=== PATIENT | male | born 1950 | race African-American/Black ===

== ENCOUNTER 2020-08-06 06:41 | Inpatient (IN) | payer MEDICAID ==
[~2020-08-06] VITALS: Ht 175.3 cm; Wt 56.7 kg
[2020-08-06] VITALS (15 sets, daily range): BP systolic 83–128; BP diastolic 44–88
[2020-08-06] MEDS ORDERED: SODIUM CHLORIDE 0.9% 1000ML BAG (SEPSIS BOLUS) IV ONE (07:15)
[2020-08-06 07:35] LABS: BASOPHILS % 0.6 % (0.0-2.0); EOSINOPHILS % 0.4 % (0.0-5.0); HEMATOCRIT. 40.2 % (42.0-52.0); HEMOGLOBIN. 11.9 g/dL (14.0-18.0); LYMPHOCYTES % 11.4 % (20.0-50.0); MEAN CORPUSCULAR HEMOGLOBIN 27.3 pg (28.0-32.0); MEAN CORPUSCULAR VOLUME 91.9 fL (80.0-94.0); MEAN PLATELET VOLUME 8.8 fl (7.4-10.4); MONOCYTES % 5.1 % (2.0-8.0); NEUTROPHILS % 82.5 % (40.0-76.0); PLATELET 296 x1000/uL (130-400); RED BLOOD CELL COUNT 4.37 mill/uL (4.7-6.1); RED CELL DISTRIBUTION WIDTH 16.8 % (11.6-14.6)
[2020-08-06 07:43] LABS: CHLORIDE 85 mEq/L (98-107)
[2020-08-06 07:45] LABS: PROTHROMBIN TIME 10.9 sec (9.6-11.0)
[2020-08-06 07:49] LABS: ETHANOL BLOOD < 10 mg/dL
[2020-08-06] MEDS ORDERED: INSULIN REGULAR (HUMULIN R) 300UNITS/3ML VIAL IV NR (08:45)
[2020-08-06 08:55] LABS: BG BASE EXCESS -10.8 mmol/L (-2.0-2.0); BG CARBOXYHEMOGLOBIN 0.1 % (0.5-1.5); BG DEOXYHEMOGLOBIN 3.6 % (0.0-5.0); BG FRACTION INSPIRED OXYGEN 21; BG HCO3 ACT 14.5 mmol/L (22.0-26.0); BG METHEMOGLOBIN 0.3 % (0.0-1.5); BG OXYGEN SATURATION 96.4 % (92.0-98.5); BG PCO2 30.7 mmHg (35.0-45.0); BG PH 7.293 (7.350-7.450); BG PO2 95.8 mmHg (75.0-100.0); BG SAMPLE SITE RIGHT BRACHIAL; BG TOTAL HEMOGLOBIN 11.2 g/dL (12.0-18.0); BG VENT MODE ROOM AIR
[2020-08-06 08:56] LABS: CLARITY URINE CLEAR (CLEAR); COLOR URINE YELLOW (YELLOW); KETONES URINE 2+ (NEGATIVE); LEUKOCYTE ESTERASE URINE NEGATIVE (NEGATIVE); NITRITE URINE NEGATIVE (NEGATIVE); OCCULT BLOOD URINE NEGATIVE (NEGATIVE); PROTEIN URINE TRACE (NEGATIVE); SPECIFIC GRAVITY URINE 1.026 (1.005-1.030); UROBILINOGEN URINE 0.2 E.U./dL (0.2-1.0)
[2020-08-06] MEDS ORDERED: INSULIN REGULAR (DRIP) 100 UNITS in SODIUM CHLORIDE 0.9% 99 ML IV NR (09:00)
[2020-08-06] MEDS ORDERED: CALCIUM GLUCONATE 100MG/ML 10ML VIAL IV NR (09:00)
[2020-08-06 09:16] LABS: *AMPHETAMINES SCREEN URINE NEGATIVE (NEGATIVE); *BARBITURATES SCREEN URINE NEGATIVE (NEGATIVE); *BENZODIAZEPINES SCREEN URINE NEGATIVE (NEGATIVE); *COCAINE SCREEN URINE NEGATIVE (NEGATIVE); CANNABINOID URINE SCREEN NEGATIVE (NEGATIVE); METHADONE URINE SCREEN NEGATIVE (NEGATIVE); OPIATES URINE SCREEN NEGATIVE (NEGATIVE)
[2020-08-06 09:17] LABS: PHENCYCLIDINE URINE SCREEN NEGATIVE (NEGATIVE)
[2020-08-06] MEDS: INSULIN REGULAR (DRIP) 100 UNITS in SODIUM CHLORIDE 0.9% 99 ML IV NR ×2 (09:57→16:19)
[2020-08-06] MEDS ORDERED: DOCUSATE SODIUM 100MG CAPSULE PO PRN (11:00)
[2020-08-06] MEDS ORDERED: NITROGLYCERIN 0.4MG TABLET SL SL PRN (11:00)
[2020-08-06] MEDS ORDERED: KETOROLAC 15MG/ML VIAL IV PRN (11:00)
[2020-08-06] MEDS ORDERED: MAGNESIUM/ALUMINUM HYDROXIDE/SIMETHICONE 30ML UDC PO PRN (11:00)
[2020-08-06] MEDS ORDERED: DEXTROSE 50% WATER 50ML SYRINGE IV PRN ×2 (11:00)
[2020-08-06] MEDS ORDERED: ACETAMINOPHEN 325MG TABLET PO PRN ×2 (11:00)
[2020-08-06] MEDS ORDERED: NA PHOS,M-B/NA PHOS,DI-BA ENEMA 118ML PR PRN (11:00)
[2020-08-06] MEDS ORDERED: ONDANSETRON HCL 4MG/2ML INJ IV PRN (11:00)
[2020-08-06] MEDS ORDERED: CLONIDINE 0.1MG TABLET PO PRN (11:00)
[2020-08-06] MEDS ORDERED: IPRATROPIUM/ALBUTEROL 0.5-3(2.5)MG/3ML NEB NEB PRN (11:00)
[2020-08-06] MEDS ORDERED: GUAIFENESIN 200MG/10ML SUGAR FREE UDC PO PRN (11:00)
[2020-08-06] MEDS: BLOOD SUGAR DIAGNOSTIC STRIP TEST SCH ×11 (11:21→23:10)
[2020-08-06] MEDS: SODIUM CHLORIDE 0.9% 1,000 ML IV SCH ×2 (11:26→16:22)
[2020-08-06 11:31] LABS: T4 FREE 1.27 ng/dL (0.76-1.46)
[2020-08-06] MEDS: ENOXAPARIN 40MG/0.4ML SYR SUBCUT SCH (11:41)
[2020-08-06 11:45] LABS: FOLIC ACID (FOLATE) SERUM >20 ng/mL ng/mL (>5.38)
[2020-08-06 11:55] LABS: VITAMIN B12 SERUM 202 pg/mL (211-911)
[2020-08-06] MEDS ORDERED: INSULIN REGULAR (DRIP) 100 UNITS in SODIUM CHLORIDE 0.9% 100 ML IV SCH (13:00)
[2020-08-06 16:10] LABS: CHLORIDE 100 mEq/L (98-107)
[2020-08-06 16:16] LABS: PHOSPHORUS 3.1 mg/dL (2.5-4.9)
[2020-08-06 16:19] LABS: CREATINE KINASE 94 IU/L (39-308)
[2020-08-06 16:21] LABS: CREATINE KINASE MB FRACTION 2.1 ng/mL (0.5-3.6)
[2020-08-06] MEDS ORDERED: PNEUMOCOCCAL 23-VAL P-SAC VAC 0.5 ML IM ONE (20:00)
[2020-08-06] MEDS: DEXT 5%/0.9% NACL KCL 20MEQ/L 1,000 ML IV SCH (20:16)
[2020-08-06 20:46] LABS: CHLORIDE 106 mEq/L (98-107)
[2020-08-06 20:52] LABS: PHOSPHORUS 2.5 mg/dL (2.5-4.9)
[2020-08-06] MEDS ORDERED: ZOLPIDEM TARTRATE 5MG TABLET PO PRN (21:00)
[2020-08-06] MEDS: CYANOCOBALAMIN 1000MCG/ML VIAL IM SCH (22:06)
[2020-08-07] VITALS (39 sets, daily range): BP systolic 94–165; BP diastolic 51–101
[2020-08-07] MEDS: BLOOD SUGAR DIAGNOSTIC STRIP TEST SCH ×9 (00:22→20:28)
[2020-08-07] MEDS: DEXT 5%/0.9% NACL KCL 20MEQ/L 1,000 ML IV SCH ×2 (02:37→09:29)
[2020-08-07 05:58] LABS: BASOPHILS % 0.5 % (0.0-2.0); EOSINOPHILS % 1.7 % (0.0-5.0); HEMATOCRIT. 31.9 % (42.0-52.0); HEMOGLOBIN. 10.2 g/dL (14.0-18.0); LYMPHOCYTES % 18.5 % (20.0-50.0); MEAN CORPUSCULAR HEMOGLOBIN 26.8 pg (28.0-32.0); MEAN CORPUSCULAR VOLUME 83.9 fL (80.0-94.0); MEAN PLATELET VOLUME 8.5 fl (7.4-10.4); MONOCYTES % 8.3 % (2.0-8.0); PLATELET 318 x1000/uL (130-400); RED CELL DISTRIBUTION WIDTH 15.7 % (11.6-14.6)
[2020-08-07] MEDS ORDERED: BLOOD SUGAR DIAGNOSTIC STRIP TEST SCH (06:00)
[2020-08-07 06:03] LABS: CHLORIDE 111 mEq/L (98-107)
[2020-08-07 06:10] LABS: PHOSPHORUS 2.5 mg/dL (2.5-4.9)
[2020-08-07 06:11] LABS: LDL CHOLESTEROL 107 mg/dL (5-100)
[2020-08-07 06:13] LABS: HDL CHOLESTEROL 53 mg/dL (40-59)
[2020-08-07 06:25] LABS: CREATINE KINASE 83 IU/L (39-308)
[2020-08-07 06:26] LABS: CREATINE KINASE MB FRACTION 1.6 ng/mL (0.5-3.6)
[2020-08-07] MEDS ORDERED: DEXTROSE 50% WATER 50ML SYRINGE IV PRN (06:45)
[2020-08-07] MEDS: CYANOCOBALAMIN 1000MCG/ML VIAL IM SCH (08:18)
[2020-08-07] MEDS: PANTOPRAZOLE SODIUM 40 MG/VIAL IV SCH (08:18)
[2020-08-07] MEDS: INSULIN LISPRO 100 UNITS/ML SUBCUT SCH ×7 (08:20→20:28)
[2020-08-07] MEDS: INSULIN GLARGINE UD 100 UNITS/ML SYR SUBCUT SCH (09:29)
[2020-08-07] MEDS: ENOXAPARIN 40MG/0.4ML SYR SUBCUT SCH (12:06)
[2020-08-08 05:00] VITALS: BP 139/66
[2020-08-08] MEDS: BLOOD SUGAR DIAGNOSTIC STRIP TEST SCH ×2 (07:09→12:58)
[2020-08-08 07:11] LABS: CHLORIDE 108 mEq/L (98-107)
[2020-08-08 08:00] VITALS: BP 131/80
[2020-08-08 08:30] LABS: BASOPHILS % 0.5 % (0.0-2.0); EOSINOPHILS % 1.9 % (0.0-5.0); HEMATOCRIT. 28.7 % (42.0-52.0); HEMOGLOBIN. 9.5 g/dL (14.0-18.0); LYMPHOCYTES % 24.3 % (20.0-50.0); MEAN CORPUSCULAR VOLUME 84.3 fL (80.0-94.0); MEAN PLATELET VOLUME 8.9 fl (7.4-10.4); MONOCYTES % 5.6 % (2.0-8.0); NEUTROPHILS % 67.7 % (40.0-76.0); PLATELET 230 x1000/uL (130-400); RED BLOOD CELL COUNT 3.41 mill/uL (4.7-6.1); RED CELL DISTRIBUTION WIDTH 15.7 % (11.6-14.6)
[2020-08-08] MEDS: PANTOPRAZOLE SODIUM 40 MG/VIAL IV SCH (09:46)
[2020-08-08] MEDS: CYANOCOBALAMIN 1000MCG/ML VIAL IM SCH (09:47)
[2020-08-08] MEDS: INSULIN LISPRO 100 UNITS/ML SUBCUT SCH ×4 (09:48→13:29)
[2020-08-08] MEDS: INSULIN GLARGINE UD 100 UNITS/ML SYR SUBCUT SCH (10:33)
[2020-08-08] MEDS: ENOXAPARIN 40MG/0.4ML SYR SUBCUT SCH (11:20)
[2020-08-08 12:00] VITALS: BP 131/80
[2020-08-08 14:46] VITALS: BP 131/80
== END 2020-08-08 16:07 | disposition home or self-care (01) | DRG 420 ==
LOC: ER 06:41 → CANRESERV 08:37 → ENRESERV 08:37 → CVICU 10:10 → EDBEDREQSVC 10:13 → EDBEDREQ 10:13 → ENRESERV 13:07 → 6EST 08-07 22:50
PROVIDERS: ADMIT Internal Medicine; ATTEND Internal Medicine
DX: E11.10 Type 2 diabetes mellitus with ketoacidosis without coma (principal); N17.0 Acute kidney failure with tubular necrosis; D51.9 Vitamin B12 deficiency anemia, unspecified; E87.1 Hypo-osmolality and hyponatremia; D63.8 Anemia in other chronic diseases classified elsewhere; E87.5 Hyperkalemia; F17.210 Nicotine dependence, cigarettes, uncomplicated; I10 Essential (primary) hypertension; T38.3X6A Underdosing of insulin and oral hypoglycemic [antidiabetic] drugs, initial encounter; Y92.89 Other specified places as the place of occurrence of the external cause; Z59.0 Homelessness; Z83.3 Family history of diabetes mellitus; Z79.4 Long term (current) use of insulin; Z91.14 Patient's other noncompliance with medication regimen
CPT/HCPCS: 36415; 36600; 71045; 80048; 80053; 80061; 80305; 80320; 81003; 82375; 82550; 82553; 82607; 82746; 82805; 82962; 83036; 83540; 83550; 83605; 83735; 83880; 84100; 84145; 84439; 84443; 84484; 85025; 90732; 93005; 93970; 97161; 99291; C9113; J0610; J1650; J1815; J1885; J3420; J7030; J7050; G0480